=== PATIENT | female | born 1965 | race Caucasian/White ===

== ENCOUNTER 2017-07-24 13:19 | Emergency (ER) | payer MEDICAID ==
[2017-07-24 14:20] LABS: BASOPHILS # (AUTO) 0.1 10^3/uL (0.0-0.1); EOSINOPHILS # (AUTO) 0.4 10^3/uL (0.0-0.7); EOSINOPHILS % (AUTO) 3.3 %; HGB - HEMOGLOBIN 15.2 g/dL (12.0-16.0); LYMPHOCYTES # (AUTO) 2.5 10^3/uL (1.5-3.5); LYMPHOCYTES % (AUTO) 21.1 %; MEAN CORPUSCULAR HEMOGLOBIN 29.4 pg (27.0-31.0); MEAN CORPUSCULAR HGB CONC 34.5 g/dL (32.0-36.0); MEAN CORPUSCULAR VOLUME 85.1 fL (81.0-99.0); MEAN PLATELET VOLUME 8.3 fL (7.9-10.8); MONOCYTES # (AUTO) 0.6 10^3/uL (0.0-1.0); MONOCYTES % (AUTO) 5.4 %; NEUTROPHILS # (AUTO) 8.2 10^3/uL (1.5-6.6); NEUTROPHILS % (AUTO) 69.2 %; PLT - PLATELET COUNT 266 10^3/uL (130-450); RED BLOOD COUNT 5.18 10^6/uL (4.20-5.40); RED CELL DISTRIBUTION WIDTH 13.7 % (12.0-15.0); WHITE BLOOD COUNT 11.8 x10^3/uL (4.8-10.8)
[2017-07-24 14:21] LABS: ALBUMIN 4.2 g/dL (3.2-5.5); ALBUMIN/GLOBULIN RATIO 1.1 (1.0-2.2); CALCIUM 9.3 mg/dL (8.5-10.3); CREATININE 0.8 mg/dL (0.4-1.0)
[2017-07-24] MEDS ORDERED: MORPHINE 10 MG/ML VIAL IVP STA ×2 (14:47→15:51)
[2017-07-24] MEDS ORDERED: ONDANSETRON 4 MG/2 ML VIAL IVP STA (14:47)
[2017-07-24] MEDS ORDERED: SODIUM CHLORIDE 0.9% 1,000 ML IV ONE (14:47)
--- NOTE | 2017-07-24 14:50 | ED Physician Documentation ---
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 For the last 5 days she has had a left-sided abdominal pain like an ache associated with nausea and several episodes of vomiting and a tactile fever but no measured fevers. She says her bowel movements have been normal.) Review of Systems Ten Systems: 10 systems reviewed and negative Constitutional: reports: Fever, Fatigue Cardiac: denies: Chest pain / pressure, Palpitations Respiratory: denies: Dyspnea, Cough GI: reports: Abdominal Pain, Nausea, Vomiting. denies: Constipation, Diarrhea, Hematemesis, Bloody / black stool : denies: Dysuria, Frequency PD PAST MEDICAL HISTORY - Past Medical History Past Medical History: Yes - Past Surgical History Past Surgical History: Yes General: Appendectomy, Bowel surgery - Present Medications Home Medications: Ambulatory Orders Medication Instructions Recorded Confirmed Ciprofloxacin HCl [Cipro] 500 mg PO BID #14 tablet 07/24/17 HYDROcod/ACETAM 5/325 [Arthur 5/325] 1 - 2 ea PO Q6H PRN #10 tablet 07/24/17 Propranolol [Inderal] 10 mg PO BID 07/24/17 07/24/17 Venlafaxine [Effexor] 37.5 mg PO BID 07/24/17 07/24/17 - Allergies Allergies/Adverse Reactions: Allergies Allergy/AdvReac Type Severity Reaction Status Date / Time No Known Drug Allergies Allergy Verified 07/24/17 13:25 - Living Situation Living Situation: reports: With family - Social History Does the pt smoke?: No Does the pt drink ETOH?: No - Family History Family history: reports: None PD ED PE NORMAL - Vitals Vital signs reviewed: Yes - General General: Alert and oriented X 3, No acute distress - HEENT HEENT: PERRL, EOMI - Neck Neck: Supple, no meningeal sign, No bony TTP - Cardiac Cardiac: RRR, No murmur - Respiratory Respiratory: No respiratory distress, Clear bilaterally - Abdomen Abdomen: Other (Mildly distended with dullness to percussion, she has an old laparotomy scar and left sided Colostomy scar. She has moderate tenderness to the left abdomen without guarding or rebound.) - Derm Derm: Normal color, Warm and dry - Extremities Extremities: No deformity, No tenderness to palpate, No edema, No calf tenderness / cord - Neuro Neuro: Alert and oriented X 3, Normal speech - Psych Psych: Normal mood, Normal affect Results - Vitals Vitals: Vital Signs - 24 hr 07/24/17 13:23 Temperature 36.7 C Heart Rate 96 Respiratory 20 Rate Blood Pressure 168/112 H O2 Saturation 96 Oxygen O2 Source Room air - Labs Labs: Laboratory Tests 07/24/17 07/24/17 07/24/17 13:48 14:04 14:04 WBC 11.8 H RBC 5.18 Hgb 15.2 Hct 44.1 MCV 85.1 MCH 29.4 MCHC 34.5 RDW 13.7 Plt Count 266 MPV 8.3 Neut # 8.2 H Lymph # 2.5 [place] # 0.6 Eos # 0.4 Baso # 0.1 Absolute Nucleated RBC 0.00 Nucleated RBC % 0.0 Sodium 136 Potassium 4.4 Chloride 97 L Carbon Dioxide 29 Anion Gap 10.0 BUN 15 Creatinine 0.8 Estimated GFR (MDRD) 75 L Glucose 110 H Calcium 9.3 Total Bilirubin 1.0 AST 47 H ALT 54 Alkaline Phosphatase 98 Total Protein 8.0 Albumin 4.2 Globulin 3.8 Albumin/Globulin Ratio 1.1 Lipase 21 L Urine Color YELLOW Urine Clarity HAZY Urine pH 7.0 Ur Specific [place] 1.015 Urine Protein NEGATIVE Urine Glucose (UA) NEGATIVE Urine Ketones NEGATIVE Urine Occult Blood TRACE-INTA Urine Nitrite POSITIVE H Urine Bilirubin NEGATIVE Urine Urobilinogen 0.2 (NORMAL) Ur Leukocyte Esterase TRACE H Urine RBC 0-5 Urine WBC 11-25 H Ur Squamous Epith Cells FEW Squamous Urine Bacteria Many H Ur Microscopic Review INDICATED Urine Culture Comments INDICATED - Rads (name of study) CT A/P Radiology: EMP read contemporaneously (Hepatic steatosis, ovarian cysts, postsurgical changes.) PD MEDICAL DECISION MAKING - ED course ED course: 52-year-old woman with left-sided abdominal pain, extensive surgical history. Diagnostics actually suggests pyelonephritis for which she is treated with Cipro. Departure - Departure Disposition: 01 Home, Self Care Clinical Impression: Pyelonephritis Abdominal pain Qualifiers: Abdominal location: left lower quadrant Qualified Code(s): R10.32 - Left lower quadrant pain Condition: Good Record reviewed to determine appropriate education?: Yes Instructions: Pyelonephritis Dc Prescriptions: Ciprofloxacin HCl [Cipro] 500 mg PO BID #14 tablet HYDROcod/ACETAM 5/325 [Arthur 5/325] 1 - 2 ea PO Q6H PRN #10 tablet PRN Reason: Pain Comments: Follow-up with your doctor on return home, mention that you did have ovarian cysts on the CAT scan and show him or her the report, he or she may want to order a follow-up ultrasound. We will culture your urine, the results should be done in 48-72 hours. If an antibiotic change is necessary we will call you. Return if worse in the meantime, especially if you develop increasing flank pain, fevers, or cannot keep down the medication. Your blood pressure was elevated today on check into the emergency department. This does not mean that you have hypertension, it is a common phenomenon to come to the emergency department and have elevated blood pressure. I recommend that you see your primary care physician within the week to have it rechecked when you are feeling better. Do not drink or drive while taking narcotic pain medication. Note that many narcotic pain relievers also contain Tylenol/acetaminophen. Please ensure that your total dose of acetaminophen from all sources does not exceed 3 g (3000 mg) per day. You may get constipated while on this medication. Take a stool softener such as Colace twice a day while you are on it. Also add an auaf-lya-ofxaclj laxative such as senna or MiraLAX on any day that you do not have a bowel movement. If you received a narcotic pain medication or sedative while in the emergency department, do not drive for the next 24 hours.
[2017-07-24 14:59] LABS: BILIRUBIN,URINE NEGATIVE (NEGATIVE); GLUCOSE, URINE (UA) NEGATIVE (NEGATIVE); KETONES,URINE (UA) NEGATIVE (NEGATIVE); LEUKOCYTE ESTERASE, URINE TRACE (NEGATIVE); NITRITE,URINE POSITIVE (NEGATIVE); OCCULT BLOOD,URINE TRACE-INTA (NEGATIVE); PROTEIN,URINE NEGATIVE (NEGATIVE); UROBILINOGEN,URINE 0.2 (NORMAL) E.U./dL (NORMAL)
[2017-07-24] MEDS ORDERED: IOPAMIDOL-300 100 ML VIAL ONE (15:00)
[2017-07-24] MEDS ORDERED: IOPAMIDOL-300 50 ML VIAL ONE (15:00)
[2017-07-24 15:09] LABS: CLARITY,URINE HAZY (CLEAR)
[2017-07-24 15:10] LABS: BACTERIA,URINE Many /HPF (None Seen); RBC,URINE 0-5 /HPF (0-5); SQUAMOUS EPITHELIAL CELL,UR FEW Squamous (<= Few)
[2017-07-24] MEDS ORDERED: IOPAMIDOL-300 50 ML VIAL PO ONE (16:12)
[2017-07-24] MEDS ORDERED: IOPAMIDOL-300 100 ML VIAL IVP ONE (16:12)
--- NOTE | 2017-07-24 16:36 | CT Report ---
EXAM: CT ABDOMEN AND PELVIS EXAM DATE: 07/24/2017 04:14 PM. CLINICAL HISTORY: Diffuse abdominal pain. COMPARISONS: None. TECHNIQUE: Routine helical CT imaging was performed through the abdomen and pelvis. IV contrast: 100 cc Isovue-300. Enteric contrast: Yes. Reconstructions: Coronal and sagittal. In accordance with CT protocol optimization, one or more of the following dose reduction techniques w ere utilized for this exam: automated exposure control, adjustment of mA and/or KV based on patient s ize, or use of iterative reconstructive technique. FINDINGS: Lung Bases: Minimal physiologic dependent bibasilar atelectasis. Liver: Normal sized liver with diffuse steatosis and minimal focal fatty sparing at the gallbladder f jud. Gallbladder/Bile Ducts: Unremarkable. Spleen: Normal. Pancreas: Normal. Adrenal Glands: Normal. Kidneys: Normal. No masses or hydronephrosis. Peritoneal Cavity/Bowel: Stomach and small bowel are unremarkable. The appendix is not clearly identi fied. Enteric contrast reaches the cecum at the time of the scan. There is a small amount of formed s tool throughout the colon. There is an anastomotic staple line in the mid sigmoid colon. There is mil d sigmoid colon diverticulosis. There is no pericolonic fat stranding. There is no lymphadenopathy, a scites, or pneumoperitoneum. Pelvic Organs: Bladder and uterus are unremarkable. There are 3.0 cm and 2.5 cm right and 1.3 cm left grossly simple ovarian/adnexal cysts. Vasculature: No aneurysms or other significant abnormality. Bones: Mild bilateral L4-L5 and L5-S1 facet osteoarthritis. Moderate degenerative disk disease L5-S1. Other: Supraumbilical and infraumbilical midline laparotomy scar. 2 cm left periumbilical region fat- containing hernia (58). 4 x 1.5 cm left paramedian midline anterior pelvic wall fat-containing kaveh ia (). IMPRESSION: 1. No clear findings to explain abdominal pain. 2. 3.0 cm and 2.5 cm right and 1.3 cm left grossly simple right ovarian/adnexal cysts without pelvic edema or free fluid. Pelvic ultrasound be of value in further characterization. 3. Hepatic steatosis. 4. Mid sigmoid colon anastomosis. Mild proximal sigmoid colon diverticulosis. No evidence of acute di verticulitis. [facility] Referring Provider Line: [phone] SITE ID: [id number]
[2017-07-24] MEDS ORDERED: CIPROFLOXACIN 250 MG TABLET PO STA (16:54)
[2017-07-24 17:06] VITALS: BP 150/90
--- NOTE | 2017-07-27 06:08 | ED Physician Documentation ---
ED Addendum - Addendum Addendum: 07/27/17Urine culture came back positive for E. coli that is resistant to Cipro. It is sensitive to all other antibiotics tested. The patient was notified, and a prescription for cephalexin was called into the pharmacy.
== END 2017-07-24 17:05 | disposition home or self-care (01) ==
LOC: ED 13:19
DX: N12 Tubulo-interstitial nephritis, not specified as acute or chronic (principal); R10.9 Unspecified abdominal pain; N83.201 Unspecified ovarian cyst, right side; R03.0 Elevated blood-pressure reading, without diagnosis of hypertension
CPT/HCPCS: 36415; 74177; 80053; 81001; 83690; 85025; 87086; 87181; 96361; 96374; 96375; 96376; 99283; 99284; A9270; Q9967; 81003